=== PATIENT | male | born 1960 | race African-American/Black ===

== ENCOUNTER 2023-01-28 01:03 | Emergency (ER) | payer MEDICAID ==
[~2023-01-28] VITALS: Ht 172.7 cm; Wt 60.0 kg
[2023-01-28 01:09] VITALS: O2SAT 99
[2023-01-28] MEDS ORDERED: IBUPROFEN 600MG TABLET PO ONE (01:15)
[2023-01-28 06:01] VITALS: BP 143/82; PULSE 75; RESP 18; TEMP 98
== END 2023-01-28 06:08 | disposition home or self-care (01) ==
LOC: ER 01:03
DX: S20.211A Contusion of right front wall of thorax, initial encounter (principal); F31.9 Bipolar disorder, unspecified; I10 Essential (primary) hypertension; Z59.00 Homelessness unspecified; Y08.89XA Assault by other specified means, initial encounter; Y93.89 Activity, other specified; Y92.89 Other specified places as the place of occurrence of the external cause; Y99.8 Other external cause status
CPT/HCPCS: 71045; 99283

== ENCOUNTER 2023-11-03 02:02 | Emergency (ER) | payer MEDICAID ==
[~2023-11-03] VITALS: Ht 180.3 cm; Wt 78.0 kg
[2023-11-03 02:06] VITALS: O2SAT 96
[2023-11-03] MEDS: HALOPERIDOL LACTATE 5MG/ML VIAL IM STA (02:37)
[2023-11-03] MEDS: LORAZEPAM 2MG/ML INJ IM ONE (02:37)
[2023-11-03] MEDS: DIPHENHYDRAMINE 50MG/ML VIAL IM STA (02:37)
[2023-11-03 02:47] LABS: BASOPHILS % 0.6 % (0.0-2.0); EOSINOPHILS % 4.4 % (0.0-5.0); HEMOGLOBIN. 12.6 g/dL (14.0-18.0); LYMPHOCYTES % 21.7 % (20.0-50.0); MEAN CORPUSCULAR HEMOGLOBIN 31.1 pg (28.0-32.0); MEAN CORPUSCULAR HGB CONC 33.2 g/dL (31.0-37.0); MEAN CORPUSCULAR VOLUME 93.6 fL (80.0-94.0); MEAN PLATELET VOLUME 7.4 fl (7.4-10.4); MONOCYTES % 8.7 % (2.0-8.0); NEUTROPHILS % 64.6 % (40.0-76.0); PLATELET 282 x1000/uL (130-400); RED BLOOD CELL COUNT 4.06 mill/uL (4.7-6.1); WHITE BLOOD COUNT 9.3 x1000/uL (4.5-11.0)
[2023-11-03 02:51] LABS: CARBON DIOXIDE 27 mEq/L (21-32); CHLORIDE 107 mEq/L (98-107); POTASSIUM 3.7 mEq/L (3.5-5.1); SODIUM 138 mEq/L (136-145)
[2023-11-03 02:52] LABS: CALCIUM 9.6 mg/dL (8.7-10.4)
[2023-11-03 02:56] LABS: CREATININE 0.9 mg/dL (0.6-1.3)
[2023-11-03 02:57] LABS: GLUCOSE 88 mg/dL (70-105); TROPONIN I HIGH SENSITIVITY 34 ng/L (3.0-53); UREA NITROGEN BLOOD 8 mg/dL (9-23)
[2023-11-03 02:59] LABS: ACETAMINOPHEN < 2 ug/mL (10-30)
[2023-11-03 03:26] LABS: ETHANOL BLOOD < 10 mg/dL (<10)
[2023-11-03 06:00] LABS: TROPONIN I HIGH SENSITIVITY 34 ng/L (3.0-53)
[2023-11-03 21:54] LABS: CLARITY URINE CLEAR (CLEAR); COLOR URINE YELLOW (YELLOW); GLUCOSE URINE NEGATIVE (NEGATIVE); KETONES URINE NEGATIVE (NEGATIVE); LEUKOCYTE ESTERASE URINE NEGATIVE (NEGATIVE); NITRITE URINE NEGATIVE (NEGATIVE); OCCULT BLOOD URINE NEGATIVE (NEGATIVE); PROTEIN URINE NEGATIVE (NEGATIVE); SPECIFIC GRAVITY URINE 1.012 (1.005-1.030); UROBILINOGEN URINE 0.2 E.U./dL (0.2-1.0)
[2023-11-03 22:02] LABS: *AMPHETAMINES SCREEN URINE NEGATIVE (NEGATIVE); *BARBITURATES SCREEN URINE NEGATIVE (NEGATIVE); *BENZODIAZEPINES SCREEN URINE NEGATIVE (NEGATIVE); *COCAINE SCREEN URINE NEGATIVE (NEGATIVE)
[2023-11-03 22:03] LABS: CANNABINOID URINE SCREEN PRESUMPTIVE POSITIVE (NEGATIVE); ECSTASY MDMA SCREEN URINE NEGATIVE (NEGATIVE); METHADONE URINE SCREEN NEGATIVE (NEGATIVE); OPIATES URINE SCREEN NEGATIVE (NEGATIVE); PHENCYCLIDINE URINE SCREEN NEGATIVE (NEGATIVE)
[2023-11-04 19:36] VITALS: BP 106/81; PULSE 100; RESP 18; TEMP 98.8
== END 2023-11-04 20:06 | disposition still patient (30) ==
LOC: ER 02:19
DX: R07.89 Other chest pain (principal); I10 Essential (primary) hypertension; R51.9 Headache, unspecified; F31.9 Bipolar disorder, unspecified; Z20.822 Contact with and (suspected) exposure to COVID-19; Z04.6 Encounter for general psychiatric examination, requested by authority
CPT/HCPCS: 80305; 80048; 81003; 80307; 80329; 80320; 83690; 85025; 84484; 36415; 71045; 70450; 93005; 96372; 99291; 87426; J1200; J1630; J2060; Z7610 ×2; G0480